=== PATIENT | male | born 1960 | race Caucasian/White ===

== ENCOUNTER → 2021-04-29 13:29 | Outpatient (CLI) | payer OTHER, SELFPAY ==
[2021-04-29 15:36] LABS: COVID19 -Nasal RAPID Negative (Negative)
== END ==
PROVIDERS: Family Provider Internal Medicine; PCP Internal Medicine; Visit Provider Physician Assistant
DX: Z01.812 Encounter for preprocedural laboratory examination (principal); Z20.822 Contact with and (suspected) exposure to COVID-19
CPT/HCPCS: 87635

== ENCOUNTER 2021-05-01 07:21 | Day surgery (SDC) | payer OTHER, SELFPAY ==
[2021-05-01 07:42] VITALS: BP 146/80; PULSE 68; RESP 16; TEMP 36.4; O2SAT 99; BMI 26.4
[2021-05-01] MEDS: SODIUM CHLORIDE 0.9% 1,000 ML 100 ML IV (07:55)
--- NOTE | 2021-05-01 08:24 | PM.HP.1 ---
History of Present Illness History of Present Illness Date Patient Seen: 05/01/21 Chief complaint: SCREENING COLONOSCOPY Narrative: First screening colonoscopy for family history of colon cancer in his sister Patient History Family & Social History Social History: household members spouse Tobacco & Substance use: Smoking Status Former smoker alcohol intake never alcohol intake frequency holiday/special occasion Substance Use Type does not use Meds Home Medications and Allergies Home Medications Medication Instructions Recorded Confirmed Type No Known Home Medications 05/01/21 05/01/21 History Allergies Allergy/AdvReac Type Severity Reaction Status Date / Time No Known Drug Allergies Allergy Verified 05/01/21 07:37 Exam Vital Signs (past 8 hours): - 05/01/21 07:42 Temperature 97.6 F Pulse Rate 68 Respiratory Rate 16 Blood Pressure 146/80 H Pulse Oximetry 99 Oxygen Delivery Method Room Air Narrative Exam Narrative: Oropharynx free of lesions Chest clear to auscultation percussion Cardiac exam reveals no S3 or murmur Assessment & Plan Assessment & Plan narrative: Family history of colon cancer in first-degree relative need for 1st colonoscopy. Risks, benefits, alternatives have been explained.
[2021-05-01] MEDS: MIDAZOLAM 5 MG/5 ML VIAL IV (08:38)
[2021-05-01] MEDS: fentaNYL 250 MCG/5 ML INJ IV (08:38)
[2021-05-01 08:50] VITALS: BP 117/70; PULSE 52; RESP 14; TEMP 36.6; O2SAT 95
--- NOTE | 2021-05-01 08:51 | PM.OP.ENDO ---
Operative Date/Time/Diagnoses Pre-op diagnosis: See indication and findings Procedure & Clinicians Study performed: Colonoscopy Indications: Family history of colon Surgeon: Gabriella Santana Procedure Notes Procedure in detail: After informed consent was obtained the patient was placed in left lateral decubitus position. The video colonoscope was introduced the rectum slowly advanced to cecum. Also withdrawal mucosa was carefully examined. Preparation was good. Scope was removed. The patient tolerated procedure well. Blood loss none Complications none Sedation Total sedation time 23 minutes Versed 8 mg fentanyl 150 micro g IV titration Findings 1. Extensive sigmoid and left-sided diverticulosis. This was associated with some a colonic narrowing and mucosal erythema. 2. Otherwise negative colonoscopy to cecum. Patient should have follow-up colonoscopy in 5 years
[2021-05-01 08:55] VITALS: BP 117/70; PULSE 53; RESP 16; O2SAT 95
[2021-05-01 09:00] VITALS: BP 128/87; PULSE 50; RESP 16; O2SAT 94
[2021-05-01 09:05] VITALS: BP 128/80; PULSE 45; RESP 16; O2SAT 93
--- NOTE | 2021-05-01 09:07 | SUR.PHASEI ---
08;55- IV not in placed, discontinued
[2021-05-01 09:16] VITALS: BP 125/89; PULSE 47; RESP 16; TEMP 36.5; O2SAT 95
[2021-05-01] MEDS: ONDANSETRON 4 MG ODT SL (09:51)
--- NOTE | 2021-05-01 09:51 | SUR.PHASEII ---
zofran ODT given for vomiting while in the bathroom. Declines soda crackers, peterson radha, or ice ships. No longer vomiting, States I'm ready to go home.
== END 2021-05-01 09:27 | disposition home or self-care (01) ==
PROVIDERS: Family Provider Internal Medicine; PCP Internal Medicine; Referring Provider Internal Medicine Gastroenterology; Visit Provider Internal Medicine Gastroenterology
PROC: 0DJD8ZZ Inspection of Lower Intestinal Tract, Via Natural or Artificial Opening Endoscopic (ICD-10-PCS; CPT 45378; principal; 2021-05-01 08:30)
DX: Z12.11 Encounter for screening for malignant neoplasm of colon (principal); Z80.0 Family history of malignant neoplasm of digestive organs; K57.30 Diverticulosis of large intestine without perforation or abscess without bleeding
CPT/HCPCS: 45378; J2250; J3010